=== PATIENT | female | born 1970 | race African-American/Black ===

== ENCOUNTER 2023-12-30 09:38 | Emergency (ER) | payer MEDICAID ==
[~2023-12-30] VITALS: Ht 157.5 cm; Wt 78.0 kg
[2023-12-30 10:04] VITALS: O2SAT 98
[2023-12-30 10:05] VITALS: BP 186/115; PULSE 72; RESP 18; TEMP 98.9; O2SAT 100
[2023-12-30] MEDS: ACETAMINOPHEN 325MG TABLET PO ONE (10:53)
[2023-12-30] MEDS ORDERED: AMOX250S70 MT (10:53)
[2023-12-30] MEDS ORDERED: IBUP-2028 MT (10:54)
== END 2023-12-30 11:34 | disposition home or self-care (01) ==
LOC: ER 09:38
DX: H92.03 Otalgia, bilateral (principal); I10 Essential (primary) hypertension; E11.9 Type 2 diabetes mellitus without complications; J45.909 Unspecified asthma, uncomplicated
CPT/HCPCS: 87070; 87430; 99283